=== PATIENT | female | born 1950 | race Caucasian/White ===

== ENCOUNTER 2017-10-12 13:39 | Inpatient (IN) | payer BC, OTHER ==
[~2017-10-12] VITALS: Ht 165.1 cm; Wt 66.4 kg
[2017-10-12 13:43] VITALS: BP 152/93
[2017-10-12 14:43] LABS: BASOPHILS # (AUTO) 0.5 K/uL (0.00-0.22); EOSINOPHILS # (AUTO) 0.3 K/uL (0-0.4); LYMPHOCYTES # (AUTO) 2.9 K/uL (2.5-16.5); MEAN CORPUSCULAR HEMOGLOBIN 30 pg (27-31); MEAN CORPUSCULAR HGB CONC 33 g/dL (33-37); MEAN CORPUSCULAR VOLUME 91 fL (80-94); MONOCYTES # (AUTO) 0.7 K/uL (0.8-1.0); NEUTROPHILS # (AUTO) 4.3 K/uL (1.8-7.7); PLATELET COUNT (AUTO) 207 K/uL (140-450); RED BLOOD CELL COUNT(AUTO) 4.94 MIL/uL (4.20-5.40); RED CELL DISTRIBUTION WIDTH 13.7 % (11.6-13.7); WHITE BLOOD COUNT (AUTO) 8.7 K/uL (4.8-10.8)
[2017-10-12 15:01] LABS: ALBUMIN 4.1 g/dL (3.4-5.0); ANION GAP 14.9 (8-16); CARBON DIOXIDE 25.2 mmol/L (21-32); CREATININE 0.7 mg/dL (0.6-1.3); POTASSIUM 4.1 mmol/L (3.5-5.1); TOTAL BILIRUBIN 0.6 mg/dL (0.0-1.0)
[2017-10-12 15:43] LABS: PROTHROMBIN TIME 10.1 secs (10.8-13.4)
--- NOTE | 2017-10-12 17:38 | NUR ---
PT AMBULATED TO BED 2
--- NOTE | 2017-10-12 17:38 | NUR ---
Nereida walters in [facility] - 10/12/17 at 1738 by KATHRYN PATIENT AMBULATED TO BED 10
[2017-10-12] MEDS ORDERED: ASPIRIN 81 MG TAB.CHEW PO ONE (17:55)
--- NOTE | 2017-10-12 17:59 | NUR ---
67 YO F BIB SELF W/ C/O CP THAT RADIATES TO HER BACK, NECK, LEFT/RIGHT SHOULDER, WITH NUMB FINGERTIPS. PT REPORTS BEING SENT HERE FROM PCP OFFICE FOR ABNORMAL EKG. PT HERE FOR INTERMITTENT ANTERIOR CHEST WALL PAIN X 2 MONTHS WORSENING IN THE LAST 2 DAYS, MORE WITH EXERTION/AMBULATING. PAIN INITIALLY STARTED FROM RT UPPER BACK AREA X 1 YR. DENIES FEVERS/CHILLS. PT HX OF HTN, HYPERLIPEDEMIA, SHINGLES. NKDA. A & O X 4. GCS 15. PT STATES THAT SHE FEELS FINE, JUST THE PAIN IS ANNOYING AT THIS POINT. SHE SAID SHE HAS NUMBNESS IN HER FINGERTIPS. CMS INTACT. NO S/S OF ACUTE RESPIRATORY DISTRESS. PT HAS A STEADY GAIT. ABD SOFT, NON-TENDER. SKIN INTACT AND COLOR WITHIN NORMAL LIMITS FOR SKIN TONE. ER MD VELASCO AWARE OF PT CONDITION. PT NEEDS MET AT THIS TIME. WILL CONTINUE TO MONITOR.
[2017-10-12] MEDS ORDERED: HYDROcodone/APAP 7.5/325 MG 1 TAB PO PRN (18:25)
[2017-10-12] MEDS ORDERED: KETOROLAC 30 MG/ML VIAL IVP PRN (18:25)
[2017-10-12] MEDS ORDERED: ACETAMINOPHEN 325 MG TAB PO PRN (18:25)
[2017-10-12] MEDS ORDERED: DOCUSATE SODIUM 100 MG GELCAP PO PRN (18:25)
[2017-10-12] MEDS ORDERED: ONDANSETRON 4 MG/2 ML VIAL IM/IVP PRN (18:25)
--- NOTE | 2017-10-12 19:00 | NUR ---
ADMITTED PT FROM ER VIA ROMEL. AAOX4. NO C/O PAIN AT THIS TIME. NO ACUTE RESP DISTRESS. IV TO LEFT WRIST #22G, PATENT AND INTACT. SKIN INTACT. AT BEDSIDE. ORIENTED PT TO THE ROOM. DISCUSSED PLAN OF CARE, PT VERBALIZED UNDERSTANDING. CALL LIGHT WITHIN REACH. WILL CONTINUE TO MONITOR.
--- NOTE | 2017-10-12 19:00 | NUR ---
Patient will be admitted to care of DR ALLEN. Admited to TELEMETRY. Will go to room 120-B. [employer] list completed. Report to MARCELO AT BEDTIME. Addendum: 10/12/17 at 1911 by [email or web address] Patient will be admitted to care of DR ALLEN. Admited to TELEMETRY. Will go to room 120-B. Belongings list completed. Report to MARCELO AT BEDSIDE.
[2017-10-12 19:06] LABS: THYROID STIMULATING HORMONE 2.38 uIU/mL (0.34-3.74)
[2017-10-12 19:07] LABS: CHOL/HDL RATIO 7.1 (1-4.5); MAGNESIUM 2.2 mg/dL (1.8-2.4)
[2017-10-12] MEDS: NACL 0.9% 1,000 ML IV SCH (19:50)
[2017-10-12 20:00] VITALS: BP 146/74
--- NOTE | 2017-10-12 21:10 | NUR ---
PT REFUSED SCD'S. EXPLAINED TO PT THE USE OF SCD'S. PT STATED THAT SHE CAN WALK.
[2017-10-12] MEDS ORDERED: LISINOPRIL 5 MG TAB PO SCH (22:00)
[2017-10-12] MEDS ORDERED: ATORVASTATIN 80 MG TAB PO SCH (22:00)
--- NOTE | 2017-10-12 22:40 | NUR ---
PT RESTING IN BED. PT STATED THAT SHE WILL JUST TAKE HER MEDS WHEN SHE WAKES UP.
[2017-10-13] VITALS: BP 145/67
--- NOTE | 2017-10-13 00:20 | NUR ---
PT IN BED, AWAKE. NO C/O PAIN. NO DISTRESS NOTED. ALL NEEDS MET AT THIS TIME. CALL LIGHT WITHIN REACH.
--- NOTE | 2017-10-13 02:30 | NUR ---
PT STATED SHE WANTS THE SCD'S. SCD'S APPLIED. NO C/O PAIN OR DISCOMFORT.
[2017-10-13 04:00] VITALS: BP 107/58
--- NOTE | 2017-10-13 04:45 | NUR ---
PT SLEEPING BUT WAKES EASILY. RESP EVEN, EQUAL AND UNLABORED. NO S/S OF DISTRESS. PERSONAL ITEMS AND CALL LIGHT WITHIN REACH.
[2017-10-13 06:20] LABS: T4 (THYROXINE) 7.4 ug/dL (4.5-12.0)
--- NOTE | 2017-10-13 07:10 | NUR ---
ENDORSED PT TO DAY SHIFT NURSE. PT IN STABLE CONDITION.
--- NOTE | 2017-10-13 07:15 | NUR ---
RECEIVED REPORT FROM WIRE STOCKKEEPER NURSE. PT IS SLEEPING IN BED, BUT EASILY AWAKEN, AAOX4, AMBULATORY, IV IS ON THE LEFT WRIST, PATENT, INTACT, FLUSHING WELL, NS RUNNING AT 60ML/HR AT THIS TIME, NO S/S OF RESPIRATORY DISTRESS OR DISCOMFORT NOTED, DISCUSSED PLAN OF CARE WITH PT, PT VERBALIZED UNDERSTANDING, CALL LIGHT IS WITHIN REACH, WILL CONTINUE TO MONITOR.
[2017-10-13 07:16] LABS: ANION GAP 13.2 (8-16); CARBON DIOXIDE 27.2 mmol/L (21-32); CREATININE 0.8 mg/dL (0.6-1.3); POTASSIUM 4.4 mmol/L (3.5-5.1)
[2017-10-13 08:00] VITALS: BP 122/62
[2017-10-13] MEDS ORDERED: LISINOPRIL 5 MG TAB PO SCH (09:00)
[2017-10-13 09:08] LABS: BASOPHILS # (AUTO) 0.3 K/uL (0.00-0.22); BASOPHILS % (AUTO) 3.6 % (0.0-2.0); EOSINOPHILS # (AUTO) 0.3 K/uL (0-0.4); EOSINOPHILS % (AUTO) 4.3 % (0.0-4.0); HEMATOCRIT 39.6 % (36-48); HEMOGLOBIN 12.6 g/dL (12.0-16.0); LYMPHOCYTES # (AUTO) 2.4 K/uL (2.5-16.5); LYMPHOCYTES % (AUTO) 33.2 % (20.5-51.1); MEAN CORPUSCULAR HEMOGLOBIN 30 pg (27-31); MEAN CORPUSCULAR HGB CONC 32 g/dL (33-37); MEAN CORPUSCULAR VOLUME 93 fL (80-94); MONOCYTES # (AUTO) 0.6 K/uL (0.8-1.0); MONOCYTES % (AUTO) 8.8 % (1.7-9.3); NEUTROPHILS # (AUTO) 3.5 K/uL (1.8-7.7); NEUTROPHILS % (AUTO) 50.1 % (42.2-75.2); PLATELET COUNT (AUTO) 209 K/uL (140-450); RED BLOOD CELL COUNT(AUTO) 4.25 MIL/uL (4.20-5.40); RED CELL DISTRIBUTION WIDTH 13.8 % (11.6-13.7); WHITE BLOOD COUNT (AUTO) 7.1 K/uL (4.8-10.8)
[2017-10-13] MEDS: ASPIRIN 81 MG TAB.CHEW PO SCH (09:12)
[2017-10-13] MEDS: ATORVASTATIN 80 MG TAB PO SCH (09:12)
[2017-10-13] MEDS: METOPROLOL 25 MG TAB PO SCH ×2 (09:14→20:22)
--- NOTE | 2017-10-13 09:14 | NUR ---
DUE MEDICATIONS GIVEN. PT TOLERATED WELL, CALL LIGHT WITHIN REACH.
[2017-10-13] MEDS ORDERED: CYCLOBENZAPRINE 10 MG TAB PO SCH (10:11)
--- NOTE | 2017-10-13 10:15 | NUR ---
PT HAVING ULTRASOUND STUDY DONE AT BEDSIDE.
[2017-10-13] MEDS: NACL 0.9% 1,000 ML IV SCH (11:17)
[2017-10-13 12:00] VITALS: BP 116/62
--- NOTE | 2017-10-13 12:00 | NUR ---
PT SLEEPING IN BED AT THIS TIME. CALL LIGHT WITHIN REACH.
[2017-10-13 12:05] LABS: BARBITURATE, URINE NEG. ng/ml (NEG <=200); BENZODIAZEPINE, URINE NEG. ng/mL (NEG <=200); CANNABINOID, URINE NEG. ng/mL (NEG <=50); OPIATE, URINE NEG. ng/mL (NEG <=2000); PHENCYCLIDINE SCREEN,URINE NEG. ng/mL (NEG <=25)
[2017-10-13 12:23] LABS: COCAINE, URINE NEG. ng/mL (NEG <=300)
[2017-10-13 12:28] LABS: APPEARANCE,URINE CLEAR (CLEAR); BILIRUBIN,URINE NEGATIVE (NEGATIVE); BLOOD, URINE NEGATIVE (NEGATIVE); COLOR,URINE YELLOW (YELLOW); LEUKOCYTE ESTERASE ,URINE NEGATIVE (NEGATIVE); NITRITE, URINE NEGATIVE (NEGATIVE); UGLUCOSE NEGATIVE (NEGATIVE)
--- NOTE | 2017-10-13 14:00 | NUR ---
PT RESTING IN BED AT THIS TIME, PT'S IS AT BEDSIDE. CALL LIGHT WITHIN REACH.
--- NOTE | 2017-10-13 14:40 | NUR ---
CM NOTE PER OCTOBER C., DOMINIC CASTAÑEDA, # [phone] OPTION 1, THERE IS NO ASSIGNED CM AT THIS TIME BUT TO SEND REVIEWS TO [facility] FAX# [phone], REF# [id number] INITIAL REVIEW FAXED TO DOMINIC GIRARD [phone] # [phone] OPTION 1
[2017-10-13 16:00] VITALS: BP 119/51
--- NOTE | 2017-10-13 16:20 | NUR ---
PT RESTING IN BED, WATCHING TV, CALL LIGHT WITHIN REACH.
--- NOTE | 2017-10-13 19:15 | NUR ---
ENDORSED PT TO SEALING MACHINE OPERATOR NURSE FOR CONTINUITY OF CARE. PT STABLE AT HIS TIME. PATIENT'S IS AT BEDSIDE.
--- NOTE | 2017-10-13 19:25 | NUR ---
RECEIVED REPORT FROM DAY SHIFT RN, PATIENT RESTING IN BED, AWAKE ALERT ORIENTED X4, NO S/S OF DISTRESS NOTED, RESPIRATION EVEN AND UNLABORED, IV PATENT AND INTACT, INFUSING NS AT 60ML/HR. CALL LIGHT WITHIN REACH, SAFETY MEASURE ENSURED, WILL CONTINUE TO MONITOR.
[2017-10-13] MEDS ORDERED: REGADENOSON 0.4 MG/5 ML SYR IV ONE (19:35)
[2017-10-13 20:00] VITALS: BP 124/56
--- NOTE | 2017-10-13 20:24 | NUR ---
DUE MEDICATION GIVEN, PATIENT TOLERATED WELL. NO S/S OF DISTRESS NOTED, RESPIRATION EVEN AND UNLABORED. CALL LIGHT WITHIN REACH, SAFETY MEASURE ENSURED, WILL CONTINUE TO MONITOR.
--- NOTE | 2017-10-13 22:40 | NUR ---
LEXISCAN STRESS TEST IS NOT SCHEDULED TONIGHT.
[2017-10-14] VITALS: BP 112/59
--- NOTE | 2017-10-14 00:10 | NUR ---
VITAL SIGNS STABLE, NO S/S OF DISTRESS NOTED, RESPIRATION EVEN AND UNLABORED, CALL LIGHT WITHIN REACH, SAFETY MEASURE ENSURED, WILL CONTINUE TO MONITOR.
--- NOTE | 2017-10-14 02:59 | NUR ---
PATIENT IS SLEEPING, NO S/S OF DISTRESS NOTED, RESPIRATION EVEN AND UNLABORED, CALL LIGHT WITHIN REACH, SAFETY MEASURE ENSURED, WILL CONTINUE TO MONITOR.
[2017-10-14 04:00] VITALS: BP 111/56
[2017-10-14] MEDS: NACL 0.9% 1,000 ML IV SCH (04:08)
--- NOTE | 2017-10-14 04:15 | NUR ---
PATIENT IS SLEEPING, RESPIRATION EVEN AND UNLABORED, CALL LIGHT WITHIN REACH, SAFETY MEASURE ENSURED, WILL CONTINUE TO MONITOR.
--- NOTE | 2017-10-14 06:14 | NUR ---
NO CHANGE IN CONDITION, PATIENT IS SLEEPING, RESPIRATION EVEN AND UNLABORED, CALL LIGHT WITHIN REACH, SAFETY MEASURE ENSURED, WILL CONTINUE TO MONITOR.
--- NOTE | 2017-10-14 07:16 | NUR ---
ENDORSE PLAN OF CARE TO DAY SHIT RN, PATIENT RESTING IN BED, IN STABLE CONDITION.
--- NOTE | 2017-10-14 07:20 | NUR ---
RECEIVED REPORT FROM INSTRUCTOR GROUND SERVICES NURSE. PT IS SLEEPING IN BED, BUT EASILY AWAKEN, AAOX4, AMBULATORY, IV IS ON THE LEFT WRIST, PATENT, INTACT, FLUSHING WELL, NS RUNNING AT 60ML/HR AT THIS TIME, NO S/S OF RESPIRATORY DISTRESS OR DISCOMFORT NOTED, DISCUSSED PLAN OF CARE WITH PT, PT VERBALIZED UNDERSTANDING, CALL LIGHT IS WITHIN REACH, WILL CONTINUE TO MONITOR.
[2017-10-14 08:00] VITALS: BP 129/64
--- NOTE | 2017-10-14 08:00 | NUR ---
I RECEIVED A PHONE CALL FROM NENA, [employer]. SHE WAS CALLING TO LET ME KNOW SHE WOULD NOT BE ABLE TO COME IN TO DO THE LEXISCAN TEST BECAUSE SHE WOULD BE IN TRAINING FOR THE NEXT TWO DAYS. NENA SAID THERE WAS NO ONE ELSE COVERING HER. HER CELL PHONE NUMBER IN CASE THERE ARE ANY QUESTIONS IS [phone].
[2017-10-14] MEDS ORDERED: LISINOPRIL 20 MG TAB PO SCH (09:00)
[2017-10-14] MEDS ORDERED: REGADENOSON 0.4 MG/5 ML SYR IV SCH (09:00)
[2017-10-14] MEDS ORDERED: CYCLOBENZAPRINE 10 MG TAB PO SCH (09:00)
[2017-10-14] MEDS: ATORVASTATIN 80 MG TAB PO SCH (09:27)
[2017-10-14] MEDS: METOPROLOL 25 MG TAB PO SCH (09:27)
[2017-10-14] MEDS: ASPIRIN 81 MG TAB.CHEW PO SCH (09:29)
--- NOTE | 2017-10-14 09:31 | NUR ---
GUSTAVO GUTIERREZ RECEIVED FAX FROM [facility] Justyle SHAJI Cardona REQUESTING REVIEWS TO BE FAXED TO FAX# [phone] CONCURRENT REVIEW FAXED TO [facility] [phone], REF# [id number], GUSTAVO Cardona PH# [phone] EXT [phone]
--- NOTE | 2017-10-14 10:00 | NUR ---
GILBERT MARQUIS IN CARDIO. SHE SPOKE TO DR. ADAMES AND HE ASKED TO CANCEL THE LEXISCAN SINCE THE [employer] WAS NOT GOING TO BE ABLE TO COME IN FOR THE NEXT TWO DAYS SINCE SHE WILL BE IN TRAINING.
--- NOTE | 2017-10-14 10:34 | NUR ---
PATIENT HAS BEEN SCREENED AND CATEGORIZED MODERATE NUTRITION RISK. PATIENT WILL BE SEEN WITHIN 3-5 DAYS OF ADMISSION. 10/15/17 - 10/17/[address]
[2017-10-14] MEDS ORDERED: ASPI81CT95 PO (11:17)
[2017-10-14] MEDS ORDERED: CYCL10TA14 PO (11:17)
[2017-10-14] MEDS ORDERED: LIP80 PO ×2 (11:17→11:26)
[2017-10-14] MEDS ORDERED: GABA100C PO (11:21)
[2017-10-14] MEDS ORDERED: VALS40TA PO (11:21)
--- NOTE | 2017-10-14 13:03 | NUR ---
DISCHARGE INSTRUCTIONS GIVEN, IV REMOVED, CATHETER TIP INTACT, ID WRIST BAND REMOVED. PT STABLE UPON DISCHARGE ACCOMPANIED BY HER .
--- NOTE | 2017-10-19 08:57 | NUR ---
CM NOTE PER [facility] GUSTAVO AMIN # [phone] SEND DISCHARGE SUMMARY TO [email or web address] FAX# [phone]. DISCHARGE SUMMARY FAXED TO [email or web address] FAX# [phone] ATTN: GUSTAVO AMIN # [phone], REF# [id number].
== END 2017-10-14 13:00 | disposition home or self-care (01) | DRG 206 ==
LOC: MED 13:39 → EEVIPCON 13:39 → MTU 18:27 → EEVIPCON 18:27 → MTU 19:10
PROVIDERS: ADMIT Student in an Organized Health Care Education/Training Program; ATTEND Student in an Organized Health Care Education/Training Program
DX: M94.0 Chondrocostal junction syndrome [Tietze] (principal); E11.65 Type 2 diabetes mellitus with hyperglycemia; E78.00 Pure hypercholesterolemia, unspecified; E78.5 Hyperlipidemia, unspecified; I10 Essential (primary) hypertension; M79.662 Pain in left lower leg; M47.9 Spondylosis, unspecified; Z90.49 Acquired absence of other specified parts of digestive tract
CPT/HCPCS: 36415; 71045; 72052; 80048; 80053; 80305; 81003; 83036; 83735; 83880; 84100; 84436; 84443; 84479; 84484; 85025; 85610; 85730; 87081; 93005; 93925; 93970; 97140; 99285; J2785; J7030; Q0092

== ENCOUNTER 2019-05-09 09:31 | Emergency (ER) | payer BC, OTHER ==
[~2019-05-09] VITALS: Ht 152.4 cm; Wt 77.3 kg
[~2019-05-09 09:31] MED LIST: ASPI81CT95 PO; CYCL10TA14 PO; GABA100C PO; LIP80 PO; VALS40TA PO
[2019-05-09 09:47] VITALS: BP 136/78
--- NOTE | 2019-05-09 09:47 | NUR ---
PT ARRIVED TO ED C/O MID THORACIC BACK PAIN X 3 MONTHS. RATES PAIN LEVEL 10/10. TAKEN OTC MEDS AND UNABLE TO GET RELIEF. DESCRIBES PAIN TWISITING. DENIES ANY INJURY, TRUAMA, OR FALLS. VSS. DENIES ANY DYSURIA. NKA. PMH: HTN, LUPUS, GOUT.
[2019-05-09] MEDS ORDERED: KETOROLAC 30 MG/ML VIAL IM ONE (10:05)
--- NOTE | 2019-05-09 10:06 | NUR ---
AT BEDSIDE TO LATANYA BOWMAN
--- NOTE | 2019-05-09 10:16 | NUR ---
RADIOLOGY AT BEDSIDE TO [place] PT FOR XR BY WHEELCHAIR.
--- NOTE | 2019-05-09 10:50 | NUR ---
PT RETURNED BACK FROM RADIOLOGY.
[2019-05-09 11:18] VITALS: BP 118/67
== END 2019-05-09 11:18 | disposition home or self-care (01) ==
LOC: MED 09:31
DX: S29.012A Strain of muscle and tendon of back wall of thorax, initial encounter (principal); I10 Essential (primary) hypertension; J45.909 Unspecified asthma, uncomplicated; M10.9 Gout, unspecified; M32.9 Systemic lupus erythematosus, unspecified; Z79.82 Long term (current) use of aspirin; Z79.899 Other long term (current) drug therapy; X58.XXXA Exposure to other specified factors, initial encounter; Y93.89 Activity, other specified; Y92.89 Other specified places as the place of occurrence of the external cause; Y99.8 Other external cause status
CPT/HCPCS: 71111; 72072; 72110; 81002; 81025; 96372; 99283; J1885